=== PATIENT | female | born 1990 | race Caucasian/White ===

== ENCOUNTER 2017-09-08 06:29 | Inpatient (IN) | payer OTHER ==
[2017-09-08] MEDS: LACTATED RINGER'S 1,000 ML IV ×2 (03:48→06:42)
[2017-09-08] MEDS ORDERED: LACTATED RINGER'S 500 ML IV (06:42)
[2017-09-08] MEDS ORDERED: BETAMET NA PHOS/AC(6 MG/ML) 5ML INJ (06:59)
[2017-09-08] MEDS ORDERED: METHYLERGONOVINE 0.2 MG INJ IM (07:00)
[2017-09-08] MEDS ORDERED: MISOPROSTOL 200 MCG TAB PR (07:00)
[2017-09-08] MEDS ORDERED: OXYTOCIN 30 UNITS/LR 500 ML IV (07:00)
[2017-09-08] MEDS ORDERED: CARBOPROST 250 MCG INJ IM (07:00)
[2017-09-08] MEDS: BETAMET NA PHOS/AC(6 MG/ML) 5ML INJ IM ×2 (07:07→19:26)
[2017-09-08] MEDS ORDERED: MAGNESIUM SULFATE 4 GM/100 ML 100 ML (07:10)
[2017-09-08 07:19] LABS: ADD MAN DIFF? NO
[2017-09-08] MEDS: MAGNESIUM SULFATE 4 GM/100 ML 100 ML IVPB (07:19)
[2017-09-08 07:30] LABS: WHITE BLOOD COUNT 7.8 10^3/ul (4.8-10.8)
[2017-09-08 07:30] LABS: BASOPHILS % 0.1 % (0.0-2.0); EOSINOPHILS # 0.1 10^3/ul (0.0-0.5); EOSINOPHILS % 1.3 % (0.0-7.0); HEMATOCRIT 31.1 % (37.0-47.0); HEMOGLOBIN 10.4 g/dl (12.0-16.0); LYMPHOCYTES # 1.4 10^3/ul (0.8-2.9); LYMPHOCYTES % 18.1 % (15.0-51.0); MEAN CORPUSCULAR HEMOGLOBIN 29.5 pg (29.0-33.0); MEAN CORPUSCULAR HGB CONC 33.4 g/dl (32.0-37.0); MEAN CORPUSCULAR VOLUME 88.4 fl (82.0-101.0); MEAN PLATELET VOLUME 12.1 fl (7.4-10.4); MONOCYTE # 0.7 10^3/ul (0.3-0.9); MONOCYTES % 9.1 % (0.0-11.0); NEUTROPHIL # 5.5 10^3/ul (1.6-7.5); NEUTROPHILS % 70.6 % (39.0-77.0); PLATELET COUNT 132 10^3/UL (140-415); RED BLOOD COUNT 3.52 10^6/ul (4.20-5.40); RED CELL DISTRIBUTION WIDTH 13.5 % (11.5-14.5)
[2017-09-08 07:54] LABS: INR 0.91; PROTIME 12.3 Sec (11.9-14.9)
[2017-09-08] MEDS: MAGNESIUM SULFATE 20 GM/500 ML 500 ML IV ×2 (08:03→15:38)
[2017-09-08 08:19] LABS: HEPATITIS B SURFACE ANTIGEN NEGATIVE (NEGATIVE)
[2017-09-08] MEDS ORDERED: BUTORPHANOL 2 MG INJ (10:55)
[2017-09-08] MEDS: BUTORPHANOL 2 MG INJ IV (10:58)
[2017-09-08 18:31] LABS: HIV 1&2 ANTIBODY NEGATIVE (NEGATIVE)
[2017-09-08] MEDS ORDERED: ONDANSETRON 4 MG INJ (20:43)
[2017-09-08 21:03] LABS: AMPHETAMINE/METHAMPHETAMINE Negative (NEGATIVE); BARBITURATES Negative (NEGATIVE); BENZODIAZEPINES Negative (NEGATIVE); CANNABINOIDS Negative (NEGATIVE); COCAINE Negative (NEGATIVE); OPIATES Negative (NEGATIVE)
[2017-09-08] MEDS: ONDANSETRON 4 MG INJ IV (22:10)
[2017-09-08 22:57] LABS: RAPID PLASMA REAGIN NONREACTIVE (NR)
[2017-09-09] MEDS: MAGNESIUM SULFATE 20 GM/500 ML 500 ML IV ×3 (00:51→11:23)
[2017-09-09 01:05] LABS: MAGNESIUM 6.8 mg/dl (1.7-2.5)
[2017-09-09 08:23] LABS: MAGNESIUM 6.9 mg/dl (1.7-2.5)
[2017-09-09] MEDS: LACTATED RINGER'S 1,000 ML IV (09:19)
[2017-09-09 12:47] LABS: RUBELLA ANTIBODY - IGG <0.90 index; RUBELLA ANTIBODY - IGM <20.00 AU/mL
[2017-09-09 13:40] LABS: MAGNESIUM 6.2 mg/dl (1.7-2.5)
[2017-09-09 19:38] LABS: MAGNESIUM 5.9 mg/dl (1.7-2.5)
[2017-09-10] MEDS: LACTATED RINGER'S 1,000 ML IV ×2 (00:48→13:03)
[2017-09-10] MEDS: MAGNESIUM SULFATE 20 GM/500 ML 500 ML IV (00:49)
[2017-09-10] MEDS: AL HYDROX/MG HYDROX/SIMETH 30 ML CUP PO ×3 (00:52→22:07)
[2017-09-10 07:02] LABS: MAGNESIUM 6.1 mg/dl (1.7-2.5)
[2017-09-10] MEDS: AMPICILLIN 2 GM/NS (PMX) 100 ML IVPB ×2 (11:33→17:30)
[2017-09-10] MEDS: CALCIUM CARBONATE 500 MG CHEW TAB PO (23:20)
[2017-09-11] MEDS: AMPICILLIN 2 GM/NS (PMX) 100 ML IVPB ×2 (00:02→06:14)
[2017-09-11] MEDS: LACTATED RINGER'S 1,000 ML IV ×5 (00:02→17:30)
[2017-09-11] MEDS ORDERED: MAGNESIUM SULFATE 4 GM/100 ML 100 ML (06:45)
[2017-09-11] MEDS ORDERED: MAGNESIUM SULFATE 6 GM in SOD CHLORIDE 0.9% 100 ML IV (07:00)
[2017-09-11] MEDS ORDERED: MAGNESIUM SULFATE 4 GM/100 ML 100 ML IV (07:00)
[2017-09-11] MEDS: MAGNESIUM SULFATE 4 GM/100 ML 100 ML IV (07:13)
[2017-09-11] MEDS: MAGNESIUM SULFATE 20 GM/500 ML 500 ML IV (07:25)
[2017-09-11] MEDS ORDERED: CEFAZOLIN 2 GM/50 ML (PMX) 50 ML IV (08:30)
[2017-09-11] MEDS ORDERED: PRENATAL VITAMIN PO (09:00)
[2017-09-11] MEDS ORDERED: FAMOTIDINE 20 MG TAB PO (09:00)
[2017-09-11] MEDS ORDERED: DOCUSATE SODIUM 100 MG CAP PO ×2 (09:00)
[2017-09-11 09:22] LABS: ADD MAN DIFF? NO
[2017-09-11 09:25] LABS: EOSINOPHILS % 0.6 % (0.0-7.0); HEMATOCRIT 20.7 % (37.0-47.0); LYMPHOCYTES # 1.3 10^3/ul (0.8-2.9); LYMPHOCYTES % 19.5 % (15.0-51.0); MEAN CORPUSCULAR HEMOGLOBIN 31.1 pg (29.0-33.0); MEAN CORPUSCULAR HGB CONC 33.8 g/dl (32.0-37.0); MONOCYTE # 0.7 10^3/ul (0.3-0.9); MONOCYTES % 9.4 % (0.0-11.0); NEUTROPHIL # 4.7 10^3/ul (1.6-7.5); NEUTROPHILS % 68.6 % (39.0-77.0); PLATELET COUNT 107 10^3/UL (140-415); RED BLOOD COUNT 2.25 10^6/ul (4.20-5.40); RED CELL DISTRIBUTION WIDTH 13.7 % (11.5-14.5)
[2017-09-11 09:25] LABS: WHITE BLOOD COUNT 6.9 10^3/ul (4.8-10.8)
[2017-09-11] MEDS: CITRIC ACID/SODIUM CITRATE 15 ML CUP PO (09:50)
[2017-09-11] MEDS: FAMOTIDINE 20 MG INJ IV (09:50)
[2017-09-11] MEDS: METOCLOPRAMIDE 10 MG INJ IV (09:51)
[2017-09-11 10:09] LABS: INR 0.87; PROTIME 11.9 Sec (11.9-14.9); PT RATIO 0.9
[2017-09-11 10:10] LABS: PARTIAL THROMBOPLASTIN TIME 22.4 Sec (25.0-35.0)
[2017-09-11] MEDS ORDERED: morphine SULFATE/PF (10 MG/10 ML) INJ (10:33)
[2017-09-11] MEDS ORDERED: FENTAnyl 50 MCG/ML VIAL (10:33)
[2017-09-11] MEDS ORDERED: DIPHENHYDRAMINE 50 MG INJ IV ×2 (10:40→13:00)
[2017-09-11] MEDS ORDERED: HYDROmorphONE 0.5 MG/0.5 ML SYG IV ×2 (10:40→11:00)
[2017-09-11] MEDS ORDERED: PHENYLephrine (100 MCG/ML) 5ML SYG (10:44)
[2017-09-11 11:10] LABS: IMMEDIATE SPIN CROSSMATCH 1 3
[2017-09-11] MEDS ORDERED: MIDAZOLAM 1 MG/ML 2 ML INJ ×2 (11:24→11:33)
[2017-09-11] MEDS ORDERED: OXYTOCIN 30 UNITS/LR 500 ML IV ×2 (11:27→17:00)
[2017-09-11] MEDS ORDERED: PROCHLORPERAZINE 10 MG INJ IV (13:00)
[2017-09-11] MEDS ORDERED: HYDROmorphONE (0.2 MG/ML) 10ML SYG IV ×2 (13:00)
[2017-09-11] MEDS ORDERED: ZOLPIDEM 5 MG TAB PO (13:00)
[2017-09-11] MEDS ORDERED: ONDANSETRON 4 MG INJ IV ×2 (13:00)
[2017-09-11] MEDS ORDERED: MEPERIDINE 25 MG INJ IV (13:00)
[2017-09-11] MEDS ORDERED: FENTAnyl 50 MCG/ML VIAL IV ×3 (13:00)
[2017-09-11] MEDS ORDERED: NALOXONE (0.4 MG/ML) INJ IV (13:00)
[2017-09-11] MEDS: MISOPROSTOL 200 MCG TAB SL (13:25)
[2017-09-11] MEDS: HYDROmorphONE (0.2 MG/ML) 10ML SYG IV (13:26)
[2017-09-11] MEDS: OXYTOCIN 30 UNITS/LR 500 ML IV ×2 (13:33→19:09)
[2017-09-11] MEDS: KETOROLAC 30 MG INJ IV ×2 (15:00→19:29)
[2017-09-11] MEDS ORDERED: ACETAMINOPHEN 500 MG TAB PO (17:00)
[2017-09-11] MEDS ORDERED: MISOPROSTOL 200 MCG TAB PR (17:00)
[2017-09-11] MEDS ORDERED: METHYLERGONOVINE 0.2 MG INJ IM (17:00)
[2017-09-11] MEDS ORDERED: CARBOPROST 250 MCG INJ IM (17:00)
[2017-09-11 17:12] LABS: ADD MAN DIFF? NO
[2017-09-11] MEDS ORDERED: LANOLIN 7 GM TUBE TOP (17:30)
[2017-09-11] MEDS ORDERED: OXYCODONE/ACETAMINOPHEN (5/325) TAB PO (17:30)
[2017-09-11 17:31] LABS: BASOPHILS % 0.1 % (0.0-2.0); EOSINOPHILS % 0.1 % (0.0-7.0); HEMATOCRIT 37.8 % (37.0-47.0); LYMPHOCYTES # 1.6 10^3/ul (0.8-2.9); LYMPHOCYTES % 11.1 % (15.0-51.0); MEAN CORPUSCULAR HEMOGLOBIN 30.2 pg (29.0-33.0); MEAN CORPUSCULAR HGB CONC 34.4 g/dl (32.0-37.0); MEAN CORPUSCULAR VOLUME 87.7 fl (82.0-101.0); MEAN PLATELET VOLUME 11.8 fl (7.4-10.4); MONOCYTE # 1.1 10^3/ul (0.3-0.9); MONOCYTES % 7.6 % (0.0-11.0); NEUTROPHIL # 11.2 10^3/ul (1.6-7.5); PLATELET COUNT 135 10^3/UL (140-415); RED BLOOD COUNT 4.31 10^6/ul (4.20-5.40); RED CELL DISTRIBUTION WIDTH 13.3 % (11.5-14.5)
[2017-09-11] MEDS: SENNA/DOCUSATE NA (8.6MG/50MG) TAB PO (21:00)
[2017-09-12] MEDS: KETOROLAC 30 MG INJ IV ×2 (01:25→08:14)
[2017-09-12] MEDS: LACTATED RINGER'S 1,000 ML IV ×2 (01:30→04:55)
[2017-09-12] MEDS: OXYTOCIN 30 UNITS/LR 500 ML IV (03:30)
[2017-09-12] MEDS: SENNA/DOCUSATE NA (8.6MG/50MG) TAB PO ×2 (08:14→21:10)
[2017-09-12 09:23] LABS: ADD MAN DIFF? NO
[2017-09-12 09:28] LABS: WHITE BLOOD COUNT 17.3 10^3/ul (4.8-10.8)
[2017-09-12 09:28] LABS: BASOPHILS % 0.2 % (0.0-2.0); EOSINOPHILS # 0.1 10^3/ul (0.0-0.5); EOSINOPHILS % 0.3 % (0.0-7.0); HEMATOCRIT 41.2 % (37.0-47.0); LYMPHOCYTES # 1.2 10^3/ul (0.8-2.9); MEAN CORPUSCULAR HEMOGLOBIN 29.4 pg (29.0-33.0); MEAN CORPUSCULAR VOLUME 86.6 fl (82.0-101.0); MEAN PLATELET VOLUME 11.6 fl (7.4-10.4); MONOCYTE # 1.2 10^3/ul (0.3-0.9); NEUTROPHIL # 14.7 10^3/ul (1.6-7.5); NEUTROPHILS % 84.6 % (39.0-77.0); PLATELET COUNT 134 10^3/UL (140-415); RED BLOOD COUNT 4.76 10^6/ul (4.20-5.40); RED CELL DISTRIBUTION WIDTH 13.6 % (11.5-14.5)
[2017-09-12 09:30] LABS: POSITIVE DIFF @See below
[2017-09-12] MEDS ORDERED: KETOROLAC 30 MG INJ IV (13:00)
[2017-09-12] MEDS: OXYCODONE/ACETAMINOPHEN (5/325) TAB PO ×2 (14:38→22:28)
[2017-09-12] MEDS: IBUPROFEN 600 MG TAB PO (15:58)
[2017-09-13] MEDS: IBUPROFEN 600 MG TAB PO ×5 (00:28→23:38)
[2017-09-13] MEDS: SENNA/DOCUSATE NA (8.6MG/50MG) TAB PO ×2 (09:04→21:18)
[2017-09-13] MEDS: OXYCODONE/ACETAMINOPHEN (5/325) TAB PO ×3 (09:05→21:39)
[2017-09-14] MEDS: OXYCODONE/ACETAMINOPHEN (5/325) TAB PO ×3 (01:41→15:18)
[2017-09-14] MEDS: IBUPROFEN 600 MG TAB PO ×2 (05:36→12:34)
[2017-09-14] MEDS: SENNA/DOCUSATE NA (8.6MG/50MG) TAB PO (09:17)
[2017-09-14] MEDS: NA PHOSPHATE/BIPHOS 133 ML ENEMA PR (12:34)
== END 2017-09-14 17:00 | disposition home or self-care (01) | DRG 766 ==
LOC: OBT 06:29 → L-D 06:34 → OBT 06:38 → PP1 09-11 16:15 → L-D 06:41
PROVIDERS: Obstetrics & Gynecology
PROC: 10D00Z1 Extraction of Products of Conception, Low, Open Approach (ICD-10-PCS; principal; 2017-09-11)
PROC: 0UB70ZZ Excision of Bilateral Fallopian Tubes, Open Approach (ICD-10-PCS; 2017-09-11)
DX: O44.13 Complete placenta previa with hemorrhage, third trimester (principal); O34.03 Maternal care for unspecified congenital malformation of uterus, third trimester; O14.94 Unspecified pre-eclampsia, complicating childbirth; Q51.2 Other doubling of uterus; Z3A.38 38 weeks gestation of pregnancy; Z37.0 Single live birth; Z30.2 Encounter for sterilization
CPT/HCPCS: 36415; 36430; 76815; 76817; 76818; 80307; 83735; 85025; 85610; 85730; 86592; 86703; 86762; 86850; 86900; 86901; 86920; 87340; 88302; 88307; 99464